=== PATIENT | female | born 1975 | race Caucasian/White ===

== ENCOUNTER 2018-12-23 13:39 | Emergency (ER) | payer BC ==
[~2018-12-23] VITALS: Ht 160 cm; Wt 77.1 kg
[2018-12-23 13:51] VITALS: BP_SYST 138
[2018-12-23 14:36] LABS: BASOPHILS # (AUTO) 0.1 K/uL (0.0-0.2); BASOPHILS % (AUTO) 0.7 % (0.0-2.0); EOSINOPHILS # (AUTO) 0.2 K/uL (0.0-0.4); EOSINOPHILS % (AUTO) 1.7 % (0.0-4.0); HEMATOCRIT 47.1 % (36-48); LYMPHOCYTES # (AUTO) 1.7 K/uL (1.0-5.5); LYMPHOCYTES % (AUTO) 15.7 % (20.5-51.5); MEAN CORPUSCULAR HEMOGLOBIN 32 pg (27-31); MEAN CORPUSCULAR HGB CONC 34 % (32-36); MEAN CORPUSCULAR VOLUME 93 fL (79.0-98.0); MONOCYTES # (AUTO) 0.7 K/uL (0.0-1.0); MONOCYTES % (AUTO) 6.7 % (1.7-9.3); NEUTROPHILS # (AUTO) 8.4 K/uL (1.8-7.7); NEUTROPHILS % (AUTO) 75.2 % (40.0-70.0); PLATELET COUNT (AUTO) 347 K/uL (130-430); RED BLOOD CELL COUNT(AUTO) 5.07 MIL/uL (4.2-6.2); RED CELL DISTRIBUTION WIDTH 12.6 % (9.0-15.0); WHITE BLOOD COUNT (AUTO) 11.1 K/uL (4.8-10.8)
[2018-12-23] MEDS ORDERED: KETOROLAC TROMETHAMINE 30 MG VIAL IVP ONE (15:00)
[2018-12-23] MEDS ORDERED: NACL 0.9% 1,000 ML IV ONE (15:00)
[2018-12-23 15:03] LABS: CALCIUM 9.4 mg/dL (8.4-11.0); CREATININE 0.86 mg/dL (0.55-1.30); POTASSIUM 3.6 mmol/L (3.5-5.1)
[2018-12-23 15:08] LABS: ALBUMIN 3.6 g/dL (3.4-4.8); TOTAL BILIRUBIN 0.4 mg/dL (0.0-1.0)
[2018-12-23] MEDS ORDERED: BACITRACIN 1 GM OINT TP ONE (15:53)
[2018-12-23 16:40] VITALS: BP_SYST 114
== END 2018-12-23 16:40 | disposition home or self-care (01) ==
LOC: SED 13:39
DX: T63.621A Toxic effect of contact with other jellyfish, accidental (unintentional), initial encounter (principal); L03.116 Cellulitis of left lower limb; L03.114 Cellulitis of left upper limb; J45.909 Unspecified asthma, uncomplicated; Z90.49 Acquired absence of other specified parts of digestive tract; Z88.8 Allergy status to other drugs, medicaments and biological substances; Y92.89 Other specified places as the place of occurrence of the external cause
CPT/HCPCS: 36415; 80053; 83605; 85025; 87040; 96365; 96375; 99283; J1885; J1956; J7030

== ENCOUNTER 2018-12-25 08:26 | Emergency (ER) | payer BC ==
[~2018-12-25] VITALS: Ht 160 cm; Wt 77.6 kg
[2018-12-25 08:30] VITALS: BP_SYST 123
--- NOTE | 2018-12-25 08:35 | NUR ---
Patient triaged and placed in waiting room. VSS and patient appears in no acute distress at this time. Accompanied by SELF, awaiting available bed, and MD notified of need for MSE.
--- NOTE | 2018-12-25 08:55 | NUR ---
BROUGHT BACK TO BED #5 AND REPORT GIVEN TO PUMA
--- NOTE | 2018-12-25 09:04 | NUR ---
ER at bedside examining patient.
--- NOTE | 2018-12-25 09:17 | NUR ---
Initial Note Patient stated that she was stung by a sting on 11/30/18. Patient has been taking Po antibiotics for two days. Furthermore, she reported taking Acyclovir for mouth sores x 5 days. Otherwise patient is not in any distress.
[2018-12-25 10:42] VITALS: BP_SYST 123
--- NOTE | 2018-12-25 10:43 | NUR ---
Patient given written and verbal discharge instructions and verbalizes understanding. ER MD discussed with patient the results and treatment provided. Patient in stable condition. ID arm band removed. Patient educated on pain management and to follow up with PMD. Pain Scale 2/10 .Opportunity for questions provided and answered. Medication side effect fact sheet provided.
== END 2018-12-25 10:43 | disposition home or self-care (01) ==
LOC: SED 08:26
DX: R21 Rash and other nonspecific skin eruption (principal); J45.909 Unspecified asthma, uncomplicated; Z88.8 Allergy status to other drugs, medicaments and biological substances
CPT/HCPCS: 36415; 83605; 99283